=== PATIENT | male | born 1940 | race Caucasian/White ===

== ENCOUNTER → 2020-04-20 | Outpatient (CLI) | payer MEDICARE, BC ==
[~2020-04-20] MED LIST: ACLI400A3 INH; ASCO500T8 PO; ASPI-515 PO; ATOR10TA9 PO; CALC-55 PO; CARV3.122 PO; CETI10CA PO; CHOL650T PO; CLOP75TA PO; FENO145T19 PO; FISH OIL OMEGA1 EACH PO; FLAX100013 PO; LISI-167 PO; METO25TA35 PO; MULT-6 PO; NITR0.4T28 SL; REGADENOSON 0.4 MG/5 ML SYRINGE ONE; TAMS0.4C2 PO; UBID100C24 PO; ZOLP-413 PO; potassium
== END | disposition home or self-care (01) ==
LOC: CFH 11:00
PROVIDERS: ATTEND Internal Medicine Clinical Cardiac Electrophysiology
DX: I21.09 ST elevation (STEMI) myocardial infarction involving other coronary artery of anterior wall (principal); I48.91 Unspecified atrial fibrillation; I25.9 Chronic ischemic heart disease, unspecified
CPT/HCPCS: 78452; 93017; A9502; J2785

== ENCOUNTER → 2020-04-27 | Outpatient (CLI) | payer MEDICARE, BC ==
[~2020-04-27] MED LIST changes: -REGADENOSON 0.4 MG/5 ML SYRINGE ONE
== END | disposition home or self-care (01) ==
LOC: CVU 07:16
PROVIDERS: ATTEND Internal Medicine Clinical Cardiac Electrophysiology
DX: I08.8 Other rheumatic multiple valve diseases (principal); I11.9 Hypertensive heart disease without heart failure; I48.91 Unspecified atrial fibrillation; I25.9 Chronic ischemic heart disease, unspecified
CPT/HCPCS: 93306; 93356

== ENCOUNTER 2020-05-03 11:24 | Day surgery (SDC) | payer MEDICARE, BC ==
[~2020-05-03] VITALS: Ht 185.4 cm; Wt 82.0 kg
[2020-05-03 11:57] VITALS: BP 142/104
[2020-05-03] MEDS ORDERED: LOSA25TA25 PO (12:07)
[2020-05-03] MEDS ORDERED: SPIR25TA5 PO (12:07)
[2020-05-03] MEDS ORDERED: METO25TA91 PO (12:07)
[2020-05-03] MEDS ORDERED: APIX5TAB PO (12:07)
[2020-05-03] MEDS ORDERED: BETA SITOSTEROL (12:07)
[2020-05-03] MEDS ORDERED: CHOL10003 PO (12:07)
[2020-05-03] MEDS ORDERED: MAGN400T36 PO (12:07)
[2020-05-03] MEDS ORDERED: APIXABAN 5 MG TABLET ONE (12:12)
[2020-05-03 12:53] LABS: ANION GAP 5 mmol/L (5-15); CALCIUM 8.8 mg/dL (8.5-10.1); CHLORIDE 110 mmol/L (98-107); CREATININE 0.97 mg/dL (0.7-1.3)
[2020-05-03] MEDS ORDERED: PROPOFOL 10 MG/ML, 20ML ONE (13:13)
== END 2020-05-03 14:18 | disposition home or self-care (01) ==
LOC: CACL 11:24
PROVIDERS: ATTEND Internal Medicine Clinical Cardiac Electrophysiology
DX: I48.19 Other persistent atrial fibrillation (principal); I25.10 Atherosclerotic heart disease of native coronary artery without angina pectoris; I10 Essential (primary) hypertension; I25.2 Old myocardial infarction; I42.9 Cardiomyopathy, unspecified; E78.5 Hyperlipidemia, unspecified; J44.9 Chronic obstructive pulmonary disease, unspecified; Z79.82 Long term (current) use of aspirin; Z79.01 Long term (current) use of anticoagulants; Z79.899 Other long term (current) drug therapy; Z88.0 Allergy status to penicillin; Z95.5 Presence of coronary angioplasty implant and graft
CPT/HCPCS: 36415; 80048; 92960; 93005; J2704

== ENCOUNTER 2020-05-26 09:03 | Day surgery (SDC) | payer MEDICARE, BC ==
[~2020-05-26] VITALS: Ht 185.4 cm; Wt 81.9 kg
[~2020-05-26 09:03] MED LIST changes: +APIX5TAB PO; -ASPI-515 PO; +ASPI-963 PO; +BETA SITOSTEROL; +CHOL10003 PO; +LOSA25TA25 PO; +MAGN400T36 PO; +METO25TA91 PO; +SPIR25TA5 PO
[2020-05-26] MEDS ORDERED: ASPIRIN 325 MG TABLET EC PO ONE (09:30)
[2020-05-26] MEDS ORDERED: SODIUM CHLORIDE 0.9% 1,000 ML IV SCH ×2 (09:30→14:00)
[2020-05-26 09:40] VITALS: BP 139/65
[2020-05-26] MEDS ORDERED: MULT1TAB57 PO (09:50)
[2020-05-26] MEDS ORDERED: ASCO500T8 PO (09:50)
[2020-05-26] MEDS ORDERED: MAGN100T6 PO (09:50)
[2020-05-26] MEDS ORDERED: ASPIRIN 325 MG TABLET EC ONE (09:56)
[2020-05-26 10:19] LABS: BASOPHILS % (AUTO) 1 % (0-1); EOSINOPHILS % (AUTO) 1 % (1-7); LYMPHOCYTES % (AUTO) 24 % (22-44); MD NO; MEAN CORPUSCULAR HGB CONC 34.2 g/dL (33.2-36.2); MEAN PLATELET VOLUME 8.7 fL (7.4-10.4); MONOCYTES % (AUTO) 9 % (2-9); NEUTROPHILS % (AUTO) 66 % (42-75); PLATELET COUNT 196 x10^3/uL (130-400); RED BLOOD COUNT 4.91 x10^6/uL (4.38-5.82); RED CELL DISTRIBUTION WIDTH 13.4 % (9.4-14.8)
[2020-05-26 10:22] LABS: ANION GAP 6 mmol/L (5-15); CALCIUM 8.7 mg/dL (8.5-10.1); CHLORIDE 112 mmol/L (98-107); CREATININE 0.92 mg/dL (0.7-1.3)
[2020-05-26] MEDS ORDERED: HEPARIN 1,000 UNITS/ML, 10ML ONE (11:32)
[2020-05-26] MEDS ORDERED: MIDAZOLAM 1 MG/ML, 5ML ONE (11:32)
[2020-05-26] MEDS ORDERED: FENTANYL PF 100 MCG/2ML ONE (11:32)
[2020-05-26] MEDS ORDERED: BIVALIRUDIN 250 MG ONE (11:32)
[2020-05-26] MEDS ORDERED: VERAPAMIL 2.5 MG/ML, 2ML ONE (11:32)
[2020-05-26] MEDS ORDERED: LIDOCAINE-MPF 1%, 5ML ONE (11:32)
[2020-05-26] MEDS ORDERED: TICAGRELOR 90 MG TABLET ONE (11:32)
== END 2020-05-26 15:28 | disposition home or self-care (01) ==
LOC: CACL 09:03
PROVIDERS: ATTEND Internal Medicine Cardiovascular Disease
DX: T82.855A Stenosis of coronary artery stent, initial encounter (principal); I25.110 Atherosclerotic heart disease of native coronary artery with unstable angina pectoris; I42.9 Cardiomyopathy, unspecified; I25.2 Old myocardial infarction; I25.9 Chronic ischemic heart disease, unspecified; I48.19 Other persistent atrial fibrillation; I10 Essential (primary) hypertension; E78.5 Hyperlipidemia, unspecified; J44.9 Chronic obstructive pulmonary disease, unspecified; Z79.01 Long term (current) use of anticoagulants; Z79.82 Long term (current) use of aspirin; Z79.899 Other long term (current) drug therapy; Z88.0 Allergy status to penicillin; Z88.1 Allergy status to other antibiotic agents; Y83.8 Other surgical procedures as the cause of abnormal reaction of the patient, or of later complication, without mention of misadventure at the time of the procedure
CPT/HCPCS: 36415; 80048; 85025; 93458; 99156; C1769; C1894; J1644; J2250; J3010; Q9967; J0583

== ENCOUNTER 2020-07-08 10:10 | Outpatient (CLI) | payer MEDICARE, BC ==
[~2020-07-08 10:10] MED LIST changes: +MAGN100T6 PO; +MULT1TAB57 PO
== END 2020-07-08 23:59 | disposition home or self-care (01) ==
LOC: CVU 10:10
PROVIDERS: ATTEND Internal Medicine Clinical Cardiac Electrophysiology
DX: I08.8 Other rheumatic multiple valve diseases (principal); I42.9 Cardiomyopathy, unspecified
CPT/HCPCS: 93306

== ENCOUNTER 2020-12-29 10:28 | Observation (INO) | payer MEDICARE, BC ==
[~2020-12-29] VITALS: Ht 185.4 cm; Wt 85.7 kg
[~2020-12-29 10:28] MED LIST changes: -MULT1TAB57 PO; +MULT1TAB58 PO
[2020-12-29] MEDS ORDERED: SODIUM CHLORIDE 0.9% 1,000 ML IV SCH (11:00)
[2020-12-29] MEDS ORDERED: PLEASE ENTER HEIGHT AND WEIGHT MC SCH (11:00)
[2020-12-29] MEDS ORDERED: VANCOMYCIN 1,000 MG in SODIUM CHLORIDE 0.9% 200 ML IVPB ONE (11:00)
[2020-12-29] MEDS ORDERED: VANCOMYCIN 500 MG ONE ×2 (11:08→12:50)
[2020-12-29] MEDS ORDERED: VANCOMYCIN 1,000 MG ONE (11:08)
[2020-12-29] MEDS ORDERED: LIDOCAINE 2%, 20ML ONE (11:08)
[2020-12-29 11:18] LABS: BASOPHILS % (AUTO) 1 % (0-1); EOSINOPHILS % (AUTO) 2 % (1-7); LYMPHOCYTES % (AUTO) 6 % (22-44); MEAN CORPUSCULAR HEMOGLOBIN 30.7 pg (27.5-34.5); MEAN CORPUSCULAR HGB CONC 33.3 g/dL (33.2-36.2); MEAN PLATELET VOLUME 7.7 fL (7.4-10.4); MONOCYTES % (AUTO) 7 % (2-9); NEUTROPHILS % (AUTO) 84 % (42-75); PLATELET COUNT 225 x10^3/uL (130-400); RED BLOOD COUNT 4.69 x10^6/uL (4.38-5.82); RED CELL DISTRIBUTION WIDTH 17.3 % (9.4-14.8)
[2020-12-29] MEDS ORDERED: FURO20TA3 PO (11:20)
[2020-12-29] MEDS ORDERED: AMIO200T42 PO (11:21)
[2020-12-29] MEDS ORDERED: FENTANYL PF 250 MCG/5ML ONE (11:25)
[2020-12-29 11:30] LABS: ANION GAP 9 mmol/L (5-15); CALCIUM 8.6 mg/dL (8.5-10.1); CHLORIDE 105 mmol/L (98-107)
[2020-12-29 11:31] LABS: INTERNATIONAL NORMALIZED RATIO 1.23 (0.93-1.1)
[2020-12-29 11:34] VITALS: BP 132/70
[2020-12-29] MEDS ORDERED: PROPOFOL 50 ML ONE ×2 (11:35→12:14)
[2020-12-29] MEDS ORDERED: MIDAZOLAM 1 MG/ML, 2ML ONE (11:39)
[2020-12-29] MEDS ORDERED: LABETALOL 5MG/ML, 20ML IV PRN (12:00)
[2020-12-29] MEDS ORDERED: PROMETHAZINE 25 MG/ML, 1ML IVPush PRN (12:00)
[2020-12-29] MEDS ORDERED: ACETAMINOPHEN 325 MG TABLET PO PRN ×2 (12:00→13:30)
[2020-12-29] MEDS ORDERED: EPHEDRINE 50 MG/ML, 1ML IM PRN (12:00)
[2020-12-29] MEDS ORDERED: MEPERIDINE/PF 25MG/0.5ML IVPush PRN (12:00)
[2020-12-29] MEDS ORDERED: morphine SULFATE 10 MG/ML, 1ML IVPush PRN (12:00)
[2020-12-29] MEDS ORDERED: OXYcodone 5 MG/5 ML ORAL.SOL UDC PO PRN (12:00)
[2020-12-29] MEDS ORDERED: EPHEDRINE 50 MG/ML, 1ML IVPush PRN (12:00)
[2020-12-29] MEDS ORDERED: FENTANYL PF 100 MCG/2ML IV PRN (12:00)
[2020-12-29] MEDS ORDERED: DIAZEPAM 5 MG/ML, 2ML IVPush PRN (12:00)
[2020-12-29] MEDS ORDERED: DIPHENHYDRAMINE 50 MG/ML, 1ML IVPush PRN (12:00)
[2020-12-29] MEDS ORDERED: ONDANSETRON 2MG/ML, 2ML IVPush PRN (12:00)
[2020-12-29] MEDS ORDERED: ONDANSETRON 2MG/ML, 2ML ONE (12:16)
[2020-12-29] MEDS ORDERED: DEXAMETHASONE 4 MG/ML, 1ML ONE (12:16)
[2020-12-29] MEDS ORDERED: Hold all anticoagulants for 24 hours MC PRN (13:30)
[2020-12-29] MEDS ORDERED: ONDANSETRON 2MG/ML, 2ML IV PRN (13:30)
[2020-12-29] MEDS ORDERED: HYDROcodone/APAP 5/325 TABLET PO PRN (13:30)
[2020-12-29] MEDS ORDERED: ZOLPIDEM 5MG TABLET PO PRN (13:30)
[2020-12-29] MEDS ORDERED: FUROSEMIDE 20 MG TABLET ONE (15:15)
[2020-12-29] MEDS: FUROSEMIDE 40 MG TABLET PO SCH (15:18)
[2020-12-29 15:19] VITALS: BP 123/79
[2020-12-29] MEDS: SODIUM CHLORIDE 0.9% 1,000 ML IV SCH ×2 (15:28→19:45)
[2020-12-29 18:52] VITALS: BP 113/65
[2020-12-29] MEDS ORDERED: TAMSULOSIN 0.4 MG CAP.ER.24H PO SCH (21:00)
[2020-12-29] MEDS ORDERED: ZOLPIDEM 5MG TABLET PO SCH (21:00)
[2020-12-29] MEDS: SODIUM CHLORIDE FLUSH 10ML SYR IVF SCH (21:29)
[2020-12-29] MEDS ORDERED: ATORVASTATIN 10 MG TABLET PO SCH (22:30)
[2020-12-29] MEDS ORDERED: METOPROLOL SUCCINATE 25 MG TAB.ER.24H PO SCH (22:30)
[2020-12-29] MEDS ORDERED: LOSARTAN 25MG TABLET PO SCH (22:30)
[2020-12-29] MEDS ORDERED: SPIRONOLACTONE 25 MG TABLET PO SCH (22:30)
[2020-12-29 23:25] VITALS: BP 115/70
[2020-12-29] MEDS: DIPHENHYDRAMINE 25 MG CAPSULE PO PRN (23:26)
[2020-12-29] MEDS: AMIODARONE 200 MG TABLET PO SCH (23:29)
[2020-12-30] MEDS: ASPIRIN 81 MG TABLET CHEW PO SCH ×2 (00:04→09:04)
[2020-12-30] MEDS: SODIUM CHLORIDE 0.9% 1,000 ML IV SCH (01:17)
[2020-12-30 02:05] VITALS: BP 108/66
[2020-12-30] MEDS: DIPHENHYDRAMINE 25 MG CAPSULE PO PRN (04:31)
[2020-12-30 07:37] VITALS: BP 148/61
[2020-12-30] MEDS ORDERED: ACET325T26 PO (07:49)
[2020-12-30] MEDS ORDERED: AMIODARONE 200 MG TABLET PO SCH (09:00)
[2020-12-30] MEDS: SODIUM CHLORIDE FLUSH 10ML SYR IVF SCH (09:00)
[2020-12-30] MEDS ORDERED: LOSARTAN 25MG TABLET PO SCH (09:00)
[2020-12-30] MEDS ORDERED: METOPROLOL SUCCINATE 25 MG TAB.ER.24H PO SCH (09:00)
[2020-12-30] MEDS ORDERED: ATORVASTATIN 10 MG TABLET PO SCH (09:00)
[2020-12-30] MEDS ORDERED: SPIRONOLACTONE 25 MG TABLET PO SCH ×2 (09:00)
[2020-12-30] MEDS ORDERED: TAMSULOSIN 0.4 MG CAP.ER.24H PO SCH (09:00)
[2020-12-30] MEDS: FUROSEMIDE 40 MG TABLET PO SCH (09:03)
[2020-12-30] MEDS: AMIODARONE 200 MG TABLET PO SCH (09:03)
== END 2020-12-30 10:18 | disposition home or self-care (01) ==
LOC: OUT 10:28 → 5SO 15:02 → OUT 22:19 → 5SO 22:20
PROVIDERS: ADMIT Internal Medicine Clinical Cardiac Electrophysiology; ATTEND Internal Medicine Clinical Cardiac Electrophysiology
DX: I11.0 Hypertensive heart disease with heart failure (principal); I50.43 Acute on chronic combined systolic (congestive) and diastolic (congestive) heart failure; Z20.822 Contact with and (suspected) exposure to COVID-19; I44.2 Atrioventricular block, complete; I25.5 Ischemic cardiomyopathy; I48.91 Unspecified atrial fibrillation; I25.9 Chronic ischemic heart disease, unspecified; I44.7 Left bundle-branch block, unspecified; I25.10 Atherosclerotic heart disease of native coronary artery without angina pectoris; I47.1 Supraventricular tachycardia; I49.3 Ventricular premature depolarization; E78.5 Hyperlipidemia, unspecified; Z79.01 Long term (current) use of anticoagulants; Z88.0 Allergy status to penicillin; Z79.899 Other long term (current) drug therapy; Z95.810 Presence of automatic (implantable) cardiac defibrillator
CPT/HCPCS: 33216; 33234; 36415; 71045; 71046; 80048; 85025; 85610; 93005; C1769; C1779; C1892; C1894; G0378; J1100; J2250; J2405; J2704; J3010; J3370; J3490; Q0163; U0003; U0005